=== PATIENT | male | born 1950 | race Caucasian/White ===

== ENCOUNTER 2018-05-03 16:47 | Inpatient (IN) ==
[2018-05-03] MEDS ORDERED: MORPHINE IV ONE (17:18)
[2018-05-03] MEDS ORDERED: TYLENOL PO ONE (17:25)
[2018-05-03] MEDS ORDERED: ROCEPHIN 1 GM in NS 50 ML IV ONE (17:26)
[2018-05-03 18:12] LABS: BASO# 0.02 X1000 (0.0-0.2); BASO% 0.2 % (0.0-0.8); EOS% 0.9 % (0.0-10.0); HEMATOCRIT 35.5 % (42.0-52.0); HEMOGLOBIN 11.2 g/dL (14.0-18.0); IMM GRAN# 0.06 X1000 (0.0-0.04); IMM GRAN% 0.5 % (0.0-0.5); LYMPH# 0.49 X1000 (1.2-3.4); LYMPH% 4.2 % (20.5-51.1); MCH 28.4 PG (27-31); MCHC 31.5 g/dL (33-37); MCV 90.1 FL (81-99); MONO% 5.2 % (1.7-9.3); MPV 10.9 FL (7.4-10.4); NEUT# 10.27 X1000 (1.4-6.5); PLT 222 X1000 (130-400); RBC 3.94 XMIL (4.7-6.1); RDW 12.5 % (11.5-14.5); WBC 11.54 X1000 (4.8-10.8)
[2018-05-03] MEDS ORDERED: ZOFRAN IV ONE (18:21)
[2018-05-03 18:22] LABS: ALB/GLOB RATIO 1.1; ALBUMIN 3.5 g/dL (3.5-5.0); CALCIUM 8.4 mg/dL (8.8-10.2); CREATININE 1.4 mg/dL (0.7-1.2); MAGNESIUM 1.9 mg/dL (1.5-2.7); POTASSIUM 4.1 mmol/L (3.5-5.1); TOTAL BILIRUBIN 0.48 mg/dL (0.20-1.00); TOTAL PROTEIN 6.8 g/dL (6.3-8.3)
--- NOTE | 2018-05-03 18:59 | Diag Imaging Result Doc PS360 ---
EXAM: CT RENAL STONE SEARCH 05/03/2018 HISTORY: SHARP ON/OFF R FLANK PAIN CONCERN STONE TECHNIQUE: This exam was performed using automated exposure control, adjustment of mA or kV according to patient size, and/or use of iterative reconstruction technique. COMMENT: There are multiple cysts arising from the left kidney. There is no evidence of hydronephrosis on either side. There is no evidence of nephrolithiasis. There is extensive colonic diverticulosis without evidence of active diverticulitis. The appendix is normal in appearance. There is atrophy of the left psoas muscle. There are bilateral hip prostheses. Compared to 05/19/2017, there has been no significant change. IMPRESSION: Constipation. Diverticulosis coli. No evidence of obstructive uropathy or urolithiasis. Electronically signed by Erasmo Thomas 05/03/2018 6:57 PM
[2018-05-03 19:03] LABS: URINE SOURCE CLEAN CATCH
[2018-05-03 19:06] LABS: BILIRUBIN URINE NEGATIVE (NEGATIVE); BLOOD URINE MODERATE (NEGATIVE); COLOR YELLOW; GLUCOSE URINE NEGATIVE (NEGATIVE); KETONE URINE NEGATIVE (NEGATIVE); LEUKOCYTES URINE MODERATE (NEGATIVE); NITRITE URINE POSITIVE (NEGATIVE); PH URINE 5.5; PROTEIN URINE 30 mg/dL (NEGATIVE); SP GRAVITY URINE 1.014; TURBIDITY URINE CLEAR (CLEAR); UROBILINOGEN URINE NORMAL (NORMAL)
[2018-05-03 19:07] LABS: UR EPITHELIAL CELLS <10 /HPF (<10); URINE BACTERIA 1+ /HPF; URINE RBC <10 /HPF (<10); URINE WBC TNTC /HPF (<10)
--- NOTE | 2018-05-03 19:37 | PROVIDER DOCUMENTATION ---
This chart was entered by Annette Whyte Scribe, acting as scribe for Jeana Carpio MD. HPI-Male Problem - General Chief Complaint: Abdominal Pain Stated Complaint: ABD PAIN Time Seen by Provider: 05/03/18 17:07 Source: patient Allergies/Adverse Reactions: Patient Allergies Allergy/AdvReac Type Severity Reaction Status Date / Time No Known Allergies Allergy Verified 05/03/18 17:58 Home Medications: Home Medication List Medication Instructions Recorded Confirmed Last Taken Type Atenolol 25 mg PO BID 03/25/12 03/08/18 03/08/18 04:15 History Aspirin 325 mg PO DAILY 11/20/14 03/08/18 03/01/18 History Losartan [Cozaar] 100 mg PO DAILY 11/20/14 03/08/18 03/01/18 History Amlodipine [Norvasc] 5 mg PO DAILY #1 tablet 03/19/16 03/08/18 03/01/18 Rx SIMVAstatin [Zocor] 40 mg PO QHS #0 tablet 03/19/16 03/08/18 03/01/18 Rx Alprazolam [Alprazolam Xr] 1 mg PO PRN PRN 03/02/18 03/08/18 03/06/18 History Pantoprazole [Protonix] 40 mg PO DAILY@0700 03/02/18 03/08/18 03/01/18 History Acetaminophen [Tylenol] 1,000 mg PO Q6H tablet 03/09/18 Unknown Rx Celecoxib [Celebrex] 200 mg PO BID #60 capsule 03/09/18 Unknown Rx Docusate Sodium [Colace] 100 mg PO BID capsule 03/09/18 Unknown Rx Famotidine [Pepcid] 20 mg PO DAILY tablet 03/09/18 Unknown Rx Oxycodone I.r. [Oxy Ir] 5 - 10 mg PO Q3H PRN PRN #40 tablet 03/09/18 Unknown Rx Pregabalin [Lyrica] 75 mg PO BID #60 capsule 03/09/18 Unknown Rx Tramadol [Ultram] 100 mg PO Q6H #120 tablet 03/09/18 Unknown Rx - History of Present Illness-Male Nature of Presenting Problem: 67 y/o male presents to ED with intermittent sharp R flank pain onset 2 weeks ago. Pt also reports associated chills, dysuria, burning with urination, and N/ V. Pt is alert and oriented. Location of Complaint: reports: right flank Radiation: reports: none Quality of Pain: reports: sharp Severity in ED: reports: moderate Onset/Duration: reports: other (2 weeks ago) Timing: reports: still present, intermittent Context/Activities at Onset: reports: none Urinary Symptoms: reports: dysuria, other (burning) Associated Symptoms: reports: back/neck pain (R flank), fever/chills, nausea, vomiting, other (dysuria, burning with urination) Similar Symptoms Previously?: No Recently seen or treated by another doctor?: No Review of Systems - Adult - REVIEW OF SYSTEMS - ADULT Constitutional: reports: chills. denies: fever Eyes: reports: no symptoms reported Ears, Nose, Mouth & Throat: reports: no symptoms reported Cardiovascular: denies: chest pain, palpitations Respiratory: denies: cough, shortness of breath Gastrointestinal: reports: nausea, vomiting. denies: abdominal pain, diarrhea Genitourinary: reports: dysuria, flank pain (R), other (burning) Musculoskeletal: reports: back pain (R flank). denies: joint pain Integumentary: reports: no symptoms reported Neurological: denies: dizziness/vertigo, seizure Psychiatric: reports: no symptoms reported Endocrine: reports: no symptoms reported Hematologic/Lymphatic: reports: no symptoms reported Allergic/Immunologic: reports: no symptoms reported All Other Systems: Reviewed and Negative Past History - Adult - PAST MEDICAL HISTORY-ADULT Review of Records: reports: Old Records Reviewed, Nursing Assessment Review, Medications Reviewed Major Childhood Illnesses: reports: denies history Cardiovascular: reports: CAD, HTN, hyperlipidemia Respiratory: reports: COPD Musculoskeletal: reports: chronic pain (back) Neurological: reports: CVA, TIA Psychiatric: reports: depression - PRIOR SURGERIES/PROCEDURES Surgical/Procedure History: reports: orthopedic (extremity) (arthroscopy), joint replacement (bilateral hips), other (R lower lung removed) - IMMUNIZATION STATUS Childhood Immunizations: See Nurse Assessment Flu Vaccine: See Nurse Assessment - FAMILY HISTORY Family History: reviewed, not pertinent - SOCIAL HISTORY Smoking: greater than 1 pack/day Provider spent 3-5 mins advising pt. on dangers of tobacco.: Discussed manners to quit use, and f/u contacts for add'l counseling. Substance Use: none/never Alcohol Use Frequency: occasionally Living Situation: family Physical Exam-General - PHYSICAL EXAM-ADULT Initial Vital Signs Reviewed: Yes - CONSTITUTIONAL General Appearance: appears well, alert, moderate distress, other (shaking) - EYES Eyes: PERRL/EOMI, pink conjunctivae - HEAD, EARS, NOSE, MOUTH & THROAT HENMT: normocephalic/atraumatic, moist mucous membranes, normal ENT inspection - NECK Neck: non-tender, full range of motion - RESPIRATORY Respiratory: chest non-tender, lungs clear, normal breath sounds - CARDIOVASCULAR Cardiovascular: normal peripheral pulses, regular rate, rhythm - GASTROINTESTINAL (ABDOMEN) Abdominal Exam: normal bowel sounds, soft, tenderness (RLQ) - MUSCULOSKELETAL Back Exam: normal inspection, CVA tenderness (bilateral) Extremity: normal range of motion, non-tender, normal gait - SKIN Integumentary: normal color, warm/dry - NEUROLOGIC Neurologic: grossly normal, other (shaking) - PSYCHIATRIC Psych/Mental Status: normal mood/affect, normal thought content, normal thought process Progress - PLAN OF CARE/RESULTS Progress/Plan/Lab Results: Vital Signs - 8 hr 05/03/18 17:00 Temperature 101.3 F H Pulse Rate 83 Respiratory Rate 24 Blood Pressure 134/92 O2 Sat by Pulse Oximetry 96 Laboratory Results - last 24 hr 05/03/18 05/03/18 05/03/18 17:50 17:50 17:50 WBC 11.54 H RBC 3.94 L Hgb 11.2 L Hct 35.5 L MCV 90.1 MCH 28.4 MCHC 31.5 L RDW Std Deviation 12.5 Plt Count 222 MPV 10.9 H Immature Gran % (Auto) 0.5 Neut % (Auto) 89.0 H Lymph % (Auto) 4.2 L [place] % (Auto) 5.2 Eos % (Auto) 0.9 Baso % (Auto) 0.2 Immature Gran # (Auto) 0.06 H Neut # (Auto) 10.27 H Lymph # (Auto) 0.49 L [place] # (Auto) 0.60 H Eos # (Auto) 0.10 Baso # (Auto) 0.02 Sodium 134 L Potassium 4.1 Chloride 97 L Carbon Dioxide 23 L Anion Gap 14 BUN 23 H Creatinine 1.4 H Estimated GFR/1.73 m2 51 BUN/Creatinine Ratio 16 Glucose 104 Calculated Osmolality 272 Calcium 8.4 L Magnesium 1.9 Total Bilirubin 0.48 AST 13 ALT 10 Alkaline Phosphatase 74 Total Protein 6.8 Albumin 3.5 Globulin 3.3 Albumin/Globulin Ratio 1.1 Plasma Lactate 1.8 Urine Source Urine Color Urine Turbidity Urine pH Ur Specific [place] Urine Protein Ur Glucose (Stick) Ur Ketones (Stick) Urine Blood Urine Nitrite Urine Bilirubin Urobilinogen Dipstick Urine Leukocytes Urine WBC (Auto) Urine RBC (Auto) U Epithel Cells (Auto) Urine Bacteria (Auto) 05/03/18 19:00 WBC RBC Hgb Hct MCV MCH MCHC RDW Std Deviation Plt Count MPV Immature Gran % (Auto) Neut % (Auto) Lymph % (Auto) [place] % (Auto) Eos % (Auto) Baso % (Auto) Immature Gran # (Auto) Neut # (Auto) Lymph # (Auto) [place] # (Auto) Eos # (Auto) Baso # (Auto) Sodium Potassium Chloride Carbon Dioxide Anion Gap BUN Creatinine Estimated GFR/1.73 m2 BUN/Creatinine Ratio Glucose Calculated Osmolality Calcium Magnesium Total Bilirubin AST ALT Alkaline Phosphatase Total Protein Albumin Globulin Albumin/Globulin Ratio Plasma Lactate Urine Source CLEAN CATCH Urine Color YELLOW Urine Turbidity CLEAR Urine pH 5.5 Ur Specific [place] 1.014 Urine Protein 30 A Ur Glucose (Stick) NEGATIVE Ur Ketones (Stick) NEGATIVE Urine Blood MODERATE A Urine Nitrite POSITIVE A Urine Bilirubin NEGATIVE Urobilinogen Dipstick NORMAL Urine Leukocytes MODERATE A Urine WBC (Auto) TNTC A Urine RBC (Auto) <10 U Epithel Cells (Auto) <10 Urine Bacteria (Auto) 1+ Orders Category Date Time Status CT RENAL STONE SEARCH [CT] Stat Exams 05/03/18 17:17 Completed BLOOD CULTURE [BLDCUL] Stat Lab 05/03/18 17:50 Results CBC WITH ELECTRONIC DIFF [HEME] Stat Lab 05/03/18 17:50 Completed COMPREHENSIVE METABOLIC PANEL [CHEM] Stat Lab 05/03/18 17:50 Completed LACTATE, PLASMA [CHEM] Stat Lab 05/03/18 17:50 Completed MAGNESIUM [CHEM] Stat Lab 05/03/18 17:50 Completed URINALYSIS W/POSS RFLX CULT [URINALYSIS] Stat Lab 05/03/18 19:00 Completed URINE CULTURE [RM] Routine Lab 05/03/18 19:25 Received Acetaminophen [Tylenol] Med 05/03/18 17:25 Discontinued 650 mg PO NOW ONE CefTRIAXONE [Rocephin] 1 gm Med 05/03/18 17:26 Discontinued 0.9% Sodium Chloride Inj [Ns] 50 ml IV NOW Morphine Med 05/03/18 17:18 Discontinued 4 mg IV NOW ONE Ondansetron [Zofran] Med 05/03/18 18:21 Discontinued 8 mg IV NOW ONE Result Diagrams: 05/03/18 17:50 05/03/18 17:50 - REASSESSMENT Reassessment #1 Time Reassessed: 19:37 Status: other (SPOKE TO DR. GARRISON WHO WILL ADMIT THE PATIENT; APPREICATE HIS ASSISTANCE.) - CT/MRI 1 CT Study: Abdomen ([facility] [address] , [address], [place] [address] Department of Imaging Patient: SANIA RAMSEY Date: #: [id number] : 1950DM [id number] Age/Sex: 67/MRoom/Bed: Loc: ED Ordering Physician: Jeana Carpio MD Family Physician: Abdiel Garrison MD Reason for Procedure: SHARP ON/OFF R FLANK PAIN CONCERN STONE Signed EXAM: CT RENAL STONE SEARCH 05/03/2018 HISTORY: SHARP ON/OFF R FLANK PAIN CONCERN STONE TECHNIQUE: This exam was performed using automated exposure control, adjustment of mA or kV according to patient size, and/or use of iterative reconstruction technique. COMMENT: There are multiple cysts arising from the left kidney. There is no evidence of hydronephrosis on either side. There is no evidence of nephrolithiasis. There is extensive colonic diverticulosis without evidence of active diverticulitis. The appendix is normal in appearance. There is atrophy of the left psoas muscle. There are bilateral hip prostheses. Compared to 05/19/2017, there has been no significant change. IMPRESSION: Constipation. Diverticulosis coli. No evidence of obstructive uropathy or urolithiasis. Electronically signed by Erasmo Thomas 05/03/2018 6:57 PM 05/03/18 1857 Interpreting Physician: Erasmo Thomas MD Dictated Date/Time: 05/03/18 1849 cc: Jeana Carpio MD; Abdiel Garrison MD) Departure - Departure Date of Disposition Decision: 05/03/18 Time of Disposition Decision: 19:37 DIAGNOSIS: Tobacco abuse disorder, Pyelonephritis, Constipation Disposition: ADMITTED INPATIENT 09 Certified Medical Emergency: Emergent Condition: Fair Referrals and Follow-Ups: Abdiel Garrison MD [Primary Care Provider] - - Critical Care Note This patient required my direct & personal management of CC.: No Attestation - Physician/ ZAY Attestation Patient care was provided by Advanced Practice Provider:: No The physician spent face to face time with patient:: Yes Advanced Practice Provider documentation review:: Supervising physician onsite and consulted in the evaluation and care of this patient. The physician did have a face to face encounter with the patient. This chart was documented by the indicated scribe, (Annette Whyte Scribe) and accurately reflects the services I performed and decisions made by me, Jeana Carpio MD, as attested by the provider's signature.
[2018-05-03] MEDS ORDERED: TYLENOL PO PRN (20:25)
[2018-05-03] MEDS: LOVENOX SUBQ SCH (21:53)
[2018-05-03] MEDS: COLACE PO SCH (21:53)
[2018-05-03] MEDS: ZOSYN 3.375 GM in NS 50 ML IV SCH (21:54)
[2018-05-03] MEDS: TENORMIN PO SCH (21:54)
[2018-05-03] MEDS: MORPHINE IV PRN (21:54)
[2018-05-03] MEDS: XANAX PO PRN (22:10)
[2018-05-04] MEDS: NS 1,000 ML IV SCH ×3 (00:05→22:37)
[2018-05-04] MEDS: ZOCOR PO SCH ×2 (01:36→20:35)
[2018-05-04] MEDS: MORPHINE IV PRN ×5 (01:36→20:34)
[2018-05-04] MEDS: ZOFRAN IV PRN ×5 (01:36→20:34)
[2018-05-04] MEDS: ZOSYN 3.375 GM in NS 50 ML IV SCH ×5 (03:28→21:05)
--- NOTE | 2018-05-04 03:33 | HISTORY AND PHYSICAL ---
PRIMARY CARE PHYSICIAN: Dr. Abdiel Davis. CHIEF COMPLAINT: Intractable right flank and right lower quadrant pain, fevers. HISTORY OF PRESENT ILLNESS: A 67-year-old white male who presents for evaluation of above- mentioned symptoms. Pertinent history of present illness began approximately 2 weeks ago. At that time, the patient states he began to develop intermittent, self-limiting episodes of right flank pain and chills. Over the course of the last 2 weeks, his symptoms have increased. He notes having intermittent dysuria, urinary frequency, urinary hesitancy, and an increasing concentration of urine. The patient's appetite has decreased. The quantity of bowel movements have decreased, but not the quality. He denies hematochezia or melena. On Thursday, he also developed a fever, with intermittent nausea. The patient contacted my office this morning. An appointment was offered, but the patient was unable. By this afternoon, however, the patient began to develop intractable nausea and vomiting. The patient presented to the emergency department. Fever was noted to be 101.3. Full evaluation revealed abnormal urinalysis and elevated white blood cell count. CT scan suggested constipation, diverticulosis, but no evidence of uropathy or ureterolithiasis. The patient will be admitted to the hospital for full evaluation and management of presumed pyelonephritis. Of note, the patient is status post right total knee arthroplasty on 04/05/2018. Additionally, he has had both hips replaced. PAST MEDICAL HISTORY: 1. Abnormal skin examination, with occasional actinic keratosis, and seborrheic keratoses. 2. Anxiety. 3. Carotid atherosclerosis, status post left carotid endarterectomy in 2007, with subsequent occlusion within 2 days of surgery. 4. Hypertension. 5. Hyperlipidemia. 6. Impaired fasting glucose. 7. Status post right lower lobectomy in 2003, with benign pathology. 8. Tobacco use. 9. Obstructive sleep apnea, presumed. 10. Osteoarthritis, status post bilateral hip replacements and right total knee replacement. 11. History of stroke, affecting the left eye, in 2007. 12. Insomnia. CURRENT MEDICATIONS: 1. Alprazolam 1 mg 1/2 to 1 tablet as needed. 2. Amlodipine 5 mg daily. 3. Aspirin 325 mg daily. 4. Atenolol 25 mg twice daily. 5. Dicyclomine 20 mg 3 times daily as needed. 6. Losartan 100 mg daily. 7. Pantoprazole 40 mg daily. 8. Simvastatin 40 mg at bedtime. ALLERGIES: The patient states he is allergic to Cymbalta. SOCIAL HISTORY: The patient began smoking in 1971. He averaged 1 pack per day until approximately 2011. Since that time, he has fluctuated, averaging approximately 1/2 pack per day. His last cigarettes were approximately 2 weeks ago. The patient has approximately 1 drink per week. He denies illicit drug use. 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 He enjoys golf and children. He exercises by walking a mile 3 times per week. FAMILY HISTORY: Patient's father passed at age 90, secondary to failure to thrive after the of his . Patient's mother had a history of hypertension, dementia, and an acute myocardial infarction requiring coronary artery bypass grafting at age 60 and 68. Patient's mother passed at age 89, secondary to complications of a stroke. REVIEW OF SYSTEMS: A 12-point review of systems was performed. Pertinent positives and negatives were noted in the history of present illness. PHYSICAL EXAMINATION: VITAL SIGNS: Temperature 101.3 degrees, heart rate 83, respirations 24, blood pressure 134/92. GENERAL: Well-nourished, well-developed, in no acute distress. HEENT: Normocephalic, atraumatic. Pupils equal, round, reactive to light. Extraocular muscles intact. Sclerae anicteric. [place] conjunctivae. Oral and nasopharynx clear, without exudate. NECK: Supple. No lymphadenopathy. No thyromegaly. No bruits auscultated. CARDIOVASCULAR: Regular rate and rhythm. No significant murmurs, rubs, or gallops. PULMONARY: Clear to auscultation bilaterally. ABDOMEN: Soft. Tenderness in the right lower and right upper quadrants, without guarding or rebound. Positive bowel sounds. EXTREMITIES: Moves all extremities well. No significant clubbing, cyanosis, or edema. NEUROLOGIC: Cranial nerves 2-12 grossly intact. Motor and sensory grossly intact. PSYCHOLOGIC: Examination is appropriate. LABORATORY DATA: White blood cell count 11.54, hemoglobin 11.2, hematocrit 35.5, platelet count 222,000. Sodium 134, potassium 4.1, chloride 97, bicarb 23, BUN 23, creatinine 1.4, glucose 104, calcium 8.4, magnesium 1.9. Total bilirubin 0.48, total protein 6.8, albumin 3.5, alkaline phosphatase 74, AST 13, ALT 10. Urinalysis revealed moderate blood, positive nitrite, with too many to count white blood cells, 1+ bacteria. CT scan suggested constipation. Diverticulosis coli. No evidence of obstructive uropathy or urolithiasis. ASSESSMENT AND PLAN: A 67-year-old white male, with a past medical history as noted. Presents for evaluation of right flank pain, nausea, vomiting, and fever. Laboratory data and physical examination is most consistent with pyelonephritis. Patient will be admitted to the hospital for full evaluation and management of this condition. 1. Admit to General Medicine. 2. Presumed pyelonephritis - In the setting of multiple total joint arthroplasties, right knee in early March, aggressive management is appropriate. We will check blood cultures x2. We will follow urine culture. We will initiate Zosyn therapy. We will hydrate. We will follow this. If blood cultures return positive, further evaluation and management will be appropriate. 3. Intractable nausea and vomiting - We will treat patient's pyelonephritis as described. We will start as-needed Zofran therapy. As above, we will hydrate. 4. Intractable right flank pain - This likely is a consequence of his infection. We will treat as above. We will start patient on as needed morphine. 5. Hypertension - We will continue patient's home medications. 6. Reflux disease - We will continue patient on pantoprazole therapy. 7. Hyperlipidemia - We will continue simvastatin therapy. 8. Anxiety - We will continue as-needed alprazolam. 9. Fluid, electrolytes, nutrition. We will monitor electrolytes. Normal saline at 75 mL an hour. Cardiac prudent diet. 10. Prophylaxis. Patient will be placed on subcu Lovenox. cc: Abdiel Davis MD
[2018-05-04] MEDS: PROTONIX PO SCH ×2 (05:54→06:09)
[2018-05-04 07:26] LABS: BASO# 0.04 X1000 (0.0-0.2); BASO% 0.4 % (0.0-0.8); EOS# 0.25 X1000 (0.0-0.7); EOS% 2.4 % (0.0-10.0); HEMATOCRIT 35.4 % (42.0-52.0); HEMOGLOBIN 10.9 g/dL (14.0-18.0); IMM GRAN# 0.06 X1000 (0.0-0.04); IMM GRAN% 0.6 % (0.0-0.5); LYMPH# 1.55 X1000 (1.2-3.4); LYMPH% 15.2 % (20.5-51.1); MCH 28.4 PG (27-31); MCHC 30.8 g/dL (33-37); MCV 92.2 FL (81-99); MONO# 0.87 X1000 (0.11-0.59); MONO% 8.5 % (1.7-9.3); NEUT# 7.45 X1000 (1.4-6.5); NEUT% 72.9 % (42.2-75.2); PLT 203 X1000 (130-400); RBC 3.84 XMIL (4.7-6.1); RDW 12.7 % (11.5-14.5); WBC 10.22 X1000 (4.8-10.8)
[2018-05-04 07:45] LABS: ALB/GLOB RATIO 0.9; ALBUMIN 3.1 g/dL (3.5-5.0); CALCIUM 8.2 mg/dL (8.8-10.2); CREATININE 1.4 mg/dL (0.7-1.2); POTASSIUM 4.3 mmol/L (3.5-5.1); TOTAL BILIRUBIN 0.39 mg/dL (0.20-1.00); TOTAL PROTEIN 6.5 g/dL (6.3-8.3)
[2018-05-04] MEDS: COLACE PO SCH ×2 (08:48→20:35)
[2018-05-04] MEDS: TENORMIN PO SCH ×2 (08:48→20:36)
[2018-05-04] MEDS: ASPIRIN PO SCH (08:48)
[2018-05-04] MEDS ORDERED: NORVASC PO SCH ×2 (09:00→10:39)
[2018-05-04] MEDS ORDERED: COZAAR PO SCH ×2 (09:00→10:39)
--- NOTE | 2018-05-04 11:56 | PROGRESS NOTE ---
DATE: 05/04/2018 SUBJECTIVE: The patient was admitted yesterday with intractable right flank pain, right lower quadrant pain, and fevers. Urinalysis was noted to be abnormal. CT scan revealed no acute abnormalities. Clinically, patient was diagnosed with pyelonephritis. The patient was placed on IV Zosyn. Over the course of the first 12 hours, patient's overall condition has shown improvement. Patient's temperature has decreased from 101.3 to 97.5. The patient states, overall, he is feeling much improved. He had 1 episode of hypotension this morning after a dose of morphine. Blood pressure was noted to be 77/53. Patient denied significant symptoms at that time. This morning, patient notes pain has improved, but not resolved. She denies nausea and vomiting. OBJECTIVE: Vital signs: T-max 101.3 degrees, heart rate 47 to 85, respirations 18 to 24, blood pressure 77 to 134/ 53 to 92. General: Well nourished, well developed, no acute distress. Cardiovascular: Regular rate and rhythm. No significant murmurs, rubs, or gallops. Pulmonary: Clear to auscultation bilaterally. Abdomen: Soft, tender to the right upper quadrant and right lower quadrant without guarding or rebound. Positive bowel sounds. Extremities: Moves all extremities well. No significant clubbing, cyanosis, or edema. Dermatologic: Evaluation reveals no evidence of rash. LABORATORY DATA: White blood cell count 10.22, hemoglobin 10.9, hematocrit 35.4, platelet counts is 203,000. Sodium 139, potassium 4.3, chloride 103, bicarb 29, BUN 24, creatinine 1.4, glucose 8.2. ASSESSMENT AND PLAN: 1. Presumed pyelonephritis - As above, patient is being treated aggressively with Zosyn therapy. Thus far, clinically, he has demonstrated improvement. We will continue to follow patient's blood cultures and urine cultures. For now, we will continue his current antibiotic regimen. 2. Intractable nausea and vomiting - This is likely with a consequence of his acute illness. With treatment of his pyelonephritis, he has achieved improvement. We will continue as-needed Zofran. 3. Intractable right flank pain and right upper quadrant pain - Patient is achieving improvement with treatment of his underlying pyelonephritis. 4. Isolated episode of hypotension - This likely was a consequence of morphine intervention. We will remain aware of this, certainly could be secondary to his underlying infection. As he is clinically improving, we will avoid any further intervention for now. We will continue to hold his blood pressure medications. 5. Reflux disease - We will continue pantoprazole therapy. 6. Hyperlipidemia - We will continue simvastatin therapy. 7. Anxiety - We will continue as-needed alprazolam. 8. Disposition - St this point, patient continues to require alf care in a hospital setting. We will plan discharge home once appropriate. cc: Abdiel Davis MD
[2018-05-04] MEDS: XANAX PO PRN (20:34)
[2018-05-04] MEDS: LOVENOX SUBQ SCH (20:35)
[2018-05-05] MEDS: ZOSYN 3.375 GM in NS 50 ML IV SCH (04:00)
[2018-05-05] MEDS: MORPHINE IV PRN (05:11)
[2018-05-05] MEDS: PROTONIX PO SCH (06:25)
[2018-05-05] MEDS: NS 1,000 ML IV SCH (06:26)
[2018-05-05 07:53] VITALS: BP 125/68
[2018-05-05] MEDS: ASPIRIN PO SCH (09:48)
[2018-05-05] MEDS: TENORMIN PO SCH (09:49)
[2018-05-05] MEDS: COLACE PO SCH (09:49)
--- NOTE | 2018-05-06 04:28 | DISCHARGE SUMMARY ---
ADMISSION DATE: 05/03/2018 DISCHARGE DATE: 05/05/2018 ADMISSION DIAGNOSES: 1. Intractable flank and right lower quadrant pain. 2. Fevers. DISCHARGE DIAGNOSES: 1. Presumed pyelonephritis. 2. Intractable nausea and vomiting, improved. 3. Intractable right flank pain and right upper quadrant pain, improved. 4. Isolated episode of hypotension, resolved. 5. Reflux disease, present on arrival. 6. Hyperlipidemia, present on arrival. 7. Anxiety, present on arrival. ARRIVAL CONSULTATIONS:: None. PROCEDURES: A CT scan renal stone search was performed on 05/03/2018 which revealed constipation. Diverticulosis coli. No evidence of obstructive uropathy or urolithiasis. HISTORY AND PHYSICAL EXAMINATION: See admit note. PHYSICAL EXAMINATION PRIOR TO DISCHARGE: Vital Signs: Temperature 97.9 degrees, heart rate 50, respirations 16, blood pressure is 125/68. General: Well nourished, well developed, no acute distress. Cardiovascular: Regular rate and rhythm. No significant murmurs, rubs, or gallops. Pulmonary: Clear to auscultation bilaterally. Abdomen: Soft, slightly tender in the right upper quadrant and right lower quadrant without guarding or rebound. Positive bowel sounds. Extremities: Moves all extremities well. No significant clubbing, cyanosis, or edema. Dermatologic: Evaluation reveals no evidence of rash. LABORATORY DATA PRIOR TO DISCHARGE: None. CULTURE DATA PRIOR TO DISCHARGE: Urine culture has revealed 10-20,000 colony-forming units of a gram-negative jing. HOSPITAL COURSE: The patient was admitted as per history and physical examination. Hospital course per condition is as follows: 1. Presumed pyelonephritis - upon admission, the patient was noted to have intractable nausea, vomiting, right upper and lower quadrant pain, flank pain, and an abnormal urinalysis. Symptoms were most consistent with underlying pyelonephritis. Because the patient has multiple total joint arthroplasties, aggressive IV intervention was deemed most appropriate. Blood cultures and urine cultures were drawn. The patient was placed on Zosyn therapy. With therapy, the patient's fever rapidly improved. His nausea and vomiting resolved. At time of discharge, the patient states he was feeling well. He will be discharged home on Augmentin therapy to complete a total of 2 weeks of antibiotic intervention. We will follow up on the patient's urine culture to determine if alternative agents are more appropriate. We will also follow the patient's blood cultures to confirm that he does not demonstrate underlying bacteremia. 2. Intractable nausea and vomiting - this likely was a consequence of his pyelonephritis. His pyelonephritis was treated as described above. He was treated with as-needed Zofran while hospitalized with adequate response. At time of discharge, he was tolerating p.o. 3. Intractable right flank pain - this likely was a consequence of pyelonephritis. He was treated with IV morphine while hospitalized. He has been for provided a limited supply of [place] at discharge. I suspect that with further treatment of his pyelonephritis, this will resolve. 4. Hypertension with an isolated episode of hypotension while hospitalized. The patient has underlying hypertension. Upon admission, the patient's antihypertensive agents were held. He had one episode of hypotension, likely secondary to morphine use. The patient will resume his home regimen as his blood pressure is maintained above 130 systolic. We will follow this as well. 5. Reflux disease - the patient was continued on pantoprazole therapy while hospitalized. His symptoms were controlled. 6. Hyperlipidemia - the patient was continued on simvastatin therapy. This will be continued as an outpatient. 7. Anxiety - we will continue the patient on as-needed alprazolam. 8. Leukocytosis - the patient achieved resolution while hospitalized with antibiotic intervention. DISCHARGE CONDITION: Good. DISPOSITION: Discharged to home. DISCHARGE MEDICATIONS: 1. Acetaminophen 650 mg every 4 hours as needed. 2. Xanax 0.5 mg every 6 hours as needed. 3. Colace 100 mg twice daily. 4. [place] 7.5/325, #10, 1/2-1 tablet every 6 hours as needed for pain. 5. Cozaar 100 mg daily. 6. Augmentin 875/125 every 12 hours for an additional 12 days. 7. Atenolol 25 mg twice daily. 8. Aspirin 325 mg daily. 9. Simvastatin 40 mg at bedtime. 10. Pantoprazole 40 mg daily at 7 a.m. 11. Norvasc 5 mg daily. FOLLOWUP: The patient is to follow up with me in approximately 1-2 weeks. cc: Abdiel Davis MD
== END 2018-05-05 11:33 | disposition home or self-care (01) | DRG 690 ==
LOC: ED 16:47 → EDIPHOLD 21:52 → 3N 05-04 00:40
PROVIDERS: ADMIT Internal Medicine; ATTEND Internal Medicine
CPT/HCPCS: 74176; 80053; 81001; 83605; 83735; 85025; 87040; 87077; 87088; 87186; 94761; 94799; 96365; 96367; 96375; 99285; A9270; J0696; J1650; J2270; J2405; J2543; J7030

== ENCOUNTER 2018-07-09 13:40 | Inpatient (IN) ==
[2018-07-09] MEDS: ATROVENT NEB INH SCH ×3 (16:09→23:55)
[2018-07-09] MEDS: NS 1,000 ML IV SCH (16:25)
[2018-07-09] MEDS: DOXYCYCLINE 100 MG in NS 250 ML IV SCH (16:25)
[2018-07-09] MEDS: ROCEPHIN 1 GM in NS 50 ML IV SCH (16:31)
[2018-07-09] MEDS: MORPHINE IV PRN ×2 (16:32→21:00)
--- NOTE | 2018-07-09 16:40 | Diag Imaging Result Doc PS360 ---
EXAM: CHEST-2 VIEWS 07/09/2018 HISTORY: Shortness of breath TECHNIQUE: PA and lateral chest COMMENT: There is ill-defined opacity present in the posterior right lower lobe. This is more prominent than on the previous studies of 11/17/2014 and 03/17/2016. There was and is some pleural fibrosis present laterally. There are surgical clips and suture lines in the area of the right hilum. IMPRESSION: Atelectasis versus pneumonia in the right lower lobe. Advise follow-up. Electronically signed by Erasmo Thomas 07/09/2018 4:38 PM
[2018-07-09 16:53] LABS: URINE SOURCE CLEAN CATCH
[2018-07-09 17:00] LABS: BILIRUBIN URINE SMALL (NEGATIVE); BLOOD URINE MODERATE (NEGATIVE); COLOR YELLOW; GLUCOSE URINE NEGATIVE (NEGATIVE); KETONE URINE NEGATIVE (NEGATIVE); LEUKOCYTES URINE TRACE (NEGATIVE); NITRITE URINE NEGATIVE (NEGATIVE); PROTEIN URINE 100 mg/dL (NEGATIVE); SP GRAVITY URINE 1.032; TURBIDITY URINE CLEAR (CLEAR); UROBILINOGEN URINE 3 mg/dL (NORMAL)
[2018-07-09 17:08] LABS: UR EPITHELIAL CELLS <10 /HPF (<10); URINE BACTERIA NEGATIVE /HPF; URINE RBC <10 /HPF (<10)
[2018-07-09 17:30] LABS: BASO# 0.02 X1000 (0.0-0.2); BASO% 0.2 % (0.0-0.8); EOS# 0.14 X1000 (0.0-0.7); EOS% 1.5 % (0.0-10.0); HEMATOCRIT 40.3 % (42.0-52.0); HEMOGLOBIN 12.7 g/dL (14.0-18.0); IMM GRAN# 0.06 X1000 (0.0-0.04); IMM GRAN% 0.6 % (0.0-0.5); LYMPH# 1.38 X1000 (1.2-3.4); LYMPH% 14.4 % (20.5-51.1); MCH 28.2 PG (27-31); MCHC 31.5 g/dL (33-37); MCV 89.6 FL (81-99); MONO# 0.99 X1000 (0.11-0.59); MONO% 10.3 % (1.7-9.3); MPV 10.7 FL (7.4-10.4); NEUT# 6.99 X1000 (1.4-6.5); PLT 194 X1000 (130-400); RDW 14.4 % (11.5-14.5); WBC 9.58 X1000 (4.8-10.8)
[2018-07-09 17:32] LABS: URINE CASTS GRANULAR PRESENT; URINE CRYSTALS NONE SEEN; URINE SMALL ROUND CELLS NONE SEEN; URINE YEAST NONE SEEN
[2018-07-09 18:11] LABS: ALBUMIN 3.7 g/dL (3.5-5.0); CALCIUM 9.2 mg/dL (8.8-10.2); CREATININE 1.2 mg/dL (0.7-1.2); POTASSIUM 4.5 mmol/L (3.5-5.1); TOTAL BILIRUBIN 0.72 mg/dL (0.20-1.00); TOTAL PROTEIN 7.5 g/dL (6.3-8.3)
[2018-07-09] MEDS ORDERED: PROTONIX PO PRN (21:09)
--- NOTE | 2018-07-09 21:31 | HISTORY AND PHYSICAL ---
PRIMARY CARE PHYSICIAN: Dr. Abdiel Davis. CHIEF COMPLAINT: Shortness of breath, cough, congestion, urinary frequency. HISTORY AND PHYSICAL EXAMINATION: A 68-year-old white male with a complicated past medical history presents for evaluation of above-mentioned symptoms. Current history of present illness began on June 22. At that time, patient presented to my office with upper respiratory symptoms and associated bronchospasm. The patient was treated aggressively with a steroid taper, bronchodilators, and levofloxacin therapy. The patient states initially he did reasonably well. After completing antibiotic intervention, patient developed right posterior thoracic spine pain. Over the course of the following 2 weeks, symptoms slowly progressed. On Thursday, patient noted his overall condition to deteriorate considerably. He noted profound fatigue. On Thursday, he continued to feel poorly but without specific increase in symptoms with exception of his right posterior thoracic spine pain. On Thursday, he noted significant progression of his thoracic spine pain with radiation to the posterior cervical spine and periscapular region. That night, he went to bed early after having an episode of hemoptysis. On Thursday, his shortness of breath and congestion progressed. He spiked a temperature to 100.1. Yesterday, his fever increased to 101. Because of his progressive symptoms with associated weakness and shortness of breath, patient presented to my office for further evaluation and management. Upon arrival, patient was noted to be acutely ill. The patient was then sent directly to the hospital for admission for presumed right lower lobe lung field pneumonia. X-ray has demonstrated confirmation. Of note, patient also has noted some increase in urinary frequency and intermittent dysuria. He denies hematuria or pyuria. PAST MEDICAL HISTORY: 1. Abnormal skin examination with multiple actinic keratoses and seborrheic keratoses. 2. Anxiety. 3. Hypertension. 4. Hyperlipidemia. 5. Impaired fasting glucose. 6. 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 7. Longstanding history of tobacco use 8. Obstructive sleep apnea. 9. Obesity. 10. Osteoarthritis. 11. History of ischemic stroke secondary to left carotid stenosis. 12. Insomnia. CURRENT MEDICATIONS: 1. Amlodipine 5 mg daily. 2. Aspirin 325 mg daily. 3. Atenolol 25 mg twice daily. 4. Losartan 100 mg daily. 5. Simvastatin 40 mg at bedtime. ALLERGIES: Patient did not tolerate Cymbalta. SOCIAL HISTORY: Patient has a longstanding history of tobacco use. He has approximately 1 to 2 drinks of alcohol per week. Denies illicit drug use. 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 He enjoys golf and his children. He exercises intermittently. REVIEW OF SYSTEMS: A 12 point review of systems was performed. Pertinent positives and negatives are noted in history of present illness. PHYSICAL EXAMINATION: VITAL SIGNS: Temperature 99.2 degrees, heart rate 80, respirations 16, blood pressure is 124/73. GENERAL: Ill-appearing. No acute distress. HEENT: Normocephalic, atraumatic. Pupils equal, round, react to light. Extraocular muscles intact. Sclerae anicteric. [place] conjunctivae. Oral and nasopharynx clear without exudate. NECK: Supple. No lymphadenopathy. No thyromegaly. No bruits auscultated. CARDIOVASCULAR: Regular rate and rhythm. No significant murmurs, rubs, or gallops. PULMONARY: Crackles at the right base. Adequate air movement. ABDOMEN: Soft, nontender, nondistended. Positive bowel sounds. EXTREMITIES: Moves all extremities well. No significant clubbing, cyanosis, or edema. NEUROLOGIC: Cranial nerves 2-12 grossly intact. Motor and sensory grossly intact. PSYCHOLOGIC: Appropriate. LABORATORY DATA: White blood cell count 9.58, hemoglobin 12.7, hematocrit 40.3, platelet count 194,000. Sodium 139, potassium 4.5, chloride 101, bicarb 26, BUN 23, creatinine 1.2, glucose 83, calcium 9.2, total bilirubin 0.72, total protein 7.5, albumin 3.7, alkaline phosphatase 85, AST 15, ALT 11. Urinalysis revealed moderate blood, small bilirubin, 10 to 20 white blood cells. No bacteria seen. ASSESSMENT AND PLAN: A 68-year-old white male with a complicated past medical history presents for evaluation of profound fatigue, shortness of breath, cough, congestion, and urinary frequency. Laboratory data is significant for an abnormal urinalysis with hematuria. Chest x-ray suggested underlying pneumonia in the right lower lobe. The patient will be admitted to the hospital for full evaluation and management of right lower lung field pneumonia. 1. Admit to General Medicine. 2. Right lower lung field pneumonia with associated hemoptysis-chest x-ray is consistent with an underlying pneumonia. With his prolonged tobacco history as well as hemoptysis, I do feel further investigation will be warranted. For now, we will start patient on Rocephin and [*]. We will continue routine bronchodilators. We will schedule a CT scan of the chest in the a.m. 3. Hematuria-patient has moderate hematuria per examination. White blood cells are present in urinalysis, but no evidence of bacteria. We will send the patient's urine for culture. If this returns negative, patient likely will require cystoscopic evaluation. 4. Urinary frequency-while this may be secondary to urinary tract infection, I am concerned this may also be prostatic in etiology. We will start patient on Flomax therapy. 5. Profound weakness-this is likely a consequence of his pneumonia. We will treat as above. If patient does not demonstrate a rapid improvement, we will consider adding physical therapy. 6. Right thoracic and flank pain-I suspect this is secondary to a pleuritic etiology. We will check with CAT scan as above. We will continue symptomatic management. 7. Hyperlipidemia-we will continue simvastatin therapy. 8. Hypertension-we will continue patient's home regimen. 9. Fluid, electrolytes, nutrition. We will monitor electrolytes. Normal saline at KVO. Regular diet. 10. Prophylaxis. Patient will be placed on subcu Lovenox. cc: Abdiel Davis MD
[2018-07-09] MEDS: ZOCOR PO SCH (22:32)
[2018-07-09] MEDS: XANAX PO SCH (22:32)
[2018-07-09] MEDS: TENORMIN PO SCH (22:33)
[2018-07-10] MEDS: MORPHINE IV PRN ×5 (03:40→21:36)
[2018-07-10] MEDS: DOXYCYCLINE 100 MG in NS 250 ML IV SCH ×2 (03:40→16:20)
[2018-07-10] MEDS: ATROVENT NEB INH SCH ×6 (05:01→23:38)
[2018-07-10] MEDS ORDERED: NORVASC PO SCH (09:00)
[2018-07-10] MEDS: ASPIRIN PO SCH (09:12)
[2018-07-10] MEDS: COZAAR PO SCH (09:12)
[2018-07-10] MEDS: TENORMIN PO SCH ×2 (09:12→21:36)
--- NOTE | 2018-07-10 10:58 | Diag Imaging Result Doc PS360 ---
EXAM: CT THORAX W/CONTRAST - 07/10/2018 HISTORY: pneumonia TECHNIQUE: CT thorax with intravenous contrast COMPARISON: 03/17/2016 CT angiogram pulmonary arteries FINDINGS: There is postsurgical scarring on the right similar to prior. There is new consolidation at the posterior right lower lung (presumably the right lower lobe isn't is not been surgically removed) which is compatible with pneumonia. The remainder of the lungs appear essentially clear. There is no substantial pleural effusion or pneumothorax identified. There are mildly prominent mediastinal lymph nodes similar to prior. IMPRESSION: Right lower lobe pneumonia. Mildly prominent mediastinal lymph nodes similar to prior. This exam was performed using automated exposure control, adjustment of mA or kV according to patient size, and/or use of iterative reconstruction technique. Electronically signed by Dmitry Johnson 07/10/2018 10:56 AM
[2018-07-10] MEDS: MUCINEX DM PO SCH ×2 (13:01→21:36)
--- NOTE | 2018-07-10 14:03 | PROGRESS NOTE ---
DATE: 07/10/2018 SUBJECTIVE: The patient was admitted yesterday with a presumed pneumonia and hemoptysis. Chest x- ray confirmed this diagnosis. The patient was started on Rocephin and doxycycline therapy. Bronchodilators were scheduled. Over the course of the first 24 hours, the patient states he has done reasonably well. He continues to have a persistent cough, as well as pleuritic chest pain. He denies any hemoptysis. CT scan of the chest was performed this morning to rule out further underlying pathology. This confirmed a right lower lung field pneumonia. The patient currently denies fevers, chills, nausea, vomiting, or cardiac chest discomfort. Flomax was initiated yesterday for urinary frequency, with some improvement in symptoms. OBJECTIVE: Vitals: T-max 100.2 degrees, heart rate 98 to 54, respirations 16 to 20, blood pressure 89 to 124/50 to 68. General: Well nourished, well developed, in no acute distress. Cardiovascular: Regular rate and rhythm. No significant murmurs, rubs, or gallops. Pulmonary: Crackles at the right base. Adequate air movement. Occasional wheeze. Abdomen: Soft, nontender, nondistended. Positive bowel sounds. Extremities: Moves all extremities well. No significant clubbing, cyanosis, or edema. Dermatologic: Evaluation reveals no evidence of rash. LABORATORY DATA: None. ASSESSMENT AND PLAN: 1. Right lower lung field pneumonia with associated hemoptysis. As described, chest x-ray and CT scan both confirmed an underlying pneumonia. We will continue patient on Rocephin and doxycycline therapy as described above. We will continue bronchodilators. Symptomatically, the patient is achieving some improvement. 2. Hematuria, was noted per urinalysis. We will follow urine culture. If culture returns negative, we will plan cystoscopic evaluation as an outpatient. 3. Urinary frequency. Symptoms are slowly improving. We will continue patient on Flomax therapy. We will follow cultures as described above to rule out underlying urinary tract infection. 4. Profound weakness. The patient has achieved some improvement over the first 24 hours. We will encourage the patient to ambulate in his room. We will follow this as well. 5. Right thoracic and flank pain. This likely is pleuritic secondary to underlying pneumonia. We will continue symptomatic management. 6. Hyperlipidemia. We will continue the patient on simvastatin therapy. 7. Hypertension. In the setting of slight hypotension, we will hold amlodipine for systolic blood pressure less than 130. 8. Disposition. At this point, the patient continues to require residential care in a hospital setting. We will plan discharge home once appropriate. cc: Abdiel Davis MD
[2018-07-10] MEDS ORDERED: XANAX PO SCH (21:00)
[2018-07-10] MEDS: ZOCOR PO SCH (21:36)
[2018-07-10] MEDS: XANAX PO SCH (21:36)
[2018-07-10] MEDS: ROCEPHIN 1 GM in NS 50 ML IV SCH (21:36)
[2018-07-10] MEDS: NS 1,000 ML IV SCH (21:42)
[2018-07-11] MEDS: ATROVENT NEB INH SCH ×5 (03:48→19:30)
[2018-07-11] MEDS: MORPHINE IV PRN ×4 (04:22→20:09)
[2018-07-11] MEDS: DOXYCYCLINE 100 MG in NS 250 ML IV SCH ×2 (04:22→16:38)
[2018-07-11 06:43] LABS: BASO# 0.03 X1000 (0.0-0.2); BASO% 0.4 % (0.0-0.8); EOS# 0.35 X1000 (0.0-0.7); HEMATOCRIT 37.5 % (42.0-52.0); HEMOGLOBIN 11.8 g/dL (14.0-18.0); IMM GRAN# 0.07 X1000 (0.0-0.04); LYMPH# 1.21 X1000 (1.2-3.4); LYMPH% 17.3 % (20.5-51.1); MCH 28.5 PG (27-31); MCHC 31.5 g/dL (33-37); MCV 90.6 FL (81-99); MONO# 0.82 X1000 (0.11-0.59); MONO% 11.7 % (1.7-9.3); MPV 10.9 FL (7.4-10.4); NEUT# 4.53 X1000 (1.4-6.5); NEUT% 64.6 % (42.2-75.2); PLT 180 X1000 (130-400); RBC 4.14 XMIL (4.7-6.1); RDW 14.1 % (11.5-14.5); WBC 7.01 X1000 (4.8-10.8)
[2018-07-11 06:59] LABS: ALB/GLOB RATIO 0.9; ALBUMIN 3.3 g/dL (3.5-5.0); CALCIUM 8.6 mg/dL (8.8-10.2); CREATININE 1.2 mg/dL (0.7-1.2); POTASSIUM 4.7 mmol/L (3.5-5.1); TOTAL BILIRUBIN 0.31 mg/dL (0.20-1.00); TOTAL PROTEIN 6.8 g/dL (6.3-8.3)
[2018-07-11] MEDS: ASPIRIN PO SCH (11:27)
[2018-07-11] MEDS: MUCINEX DM PO SCH ×2 (11:27→20:09)
[2018-07-11] MEDS: COZAAR PO SCH (11:27)
[2018-07-11] MEDS: TENORMIN PO SCH ×2 (11:27→20:10)
[2018-07-11] MEDS: LOVENOX SUBQ SCH (11:28)
--- NOTE | 2018-07-11 13:27 | PROGRESS NOTE ---
DATE: 07/11/2018 SUBJECTIVE: The patient states over the course of the last 24 hours he has not done well. Beginning yesterday evening, patient developed pain in his left wrist. Since that time, patient has had infiltration of his IV. He noted considerable swelling and pain. From a pulmonary standpoint, patient states he continues to have cough as well as pleuritic chest pain in the right lower lung field. He denies fevers, chills, nausea, vomiting, shortness of breath, or chest discomfort at present time. OBJECTIVE: T-max 98.7 degrees, heart rate 54 to 75, respirations 16 to 18, blood pressure 105 to 115 over 58 to 69.General: Well nourished, well developed, no acute distress. Cardiovascular: Regular rate and rhythm. No significant murmurs, rubs, or gallops. Pulmonary: Clear auscultation bilaterally. Abdomen: Soft, nontender, nondistended. Positive bowel sounds. Extremities: Moves all extremities well. No significant clubbing, cyanosis, or edema. Dermatologic: Evaluation reveals no evidence of rash. LABORATORY DATA: White blood cell count 7.01, hemoglobin 11.8, hematocrit 37.5, platelet count 180,000. Sodium 142, potassium 4.7, chloride 106, bicarb 28, BUN 19, creatinine 1.2, glucose 96, calcium 8.6, total bilirubin 0.31, total protein 6.8, albumin 3.3, alkaline phosphatase 85, AST 18, ALT 18. ASSESSMENT AND PLAN: 1. Right lower lung field pneumonia with associated hemoptysis-as described in his history and physical examination, patient failed outpatient intervention. He is currently being treated with Rocephin and doxycycline therapy. Overall, his condition continues to improve. I anticipate within the next 24 to 48 hours, we will be able to transition him home with oral antibiotic intervention. Followup CT scan will be warranted. We will also continue bronchodilators. 2. Hematuria-urinalysis revealed significant hematuria. Urine culture thus far has returned negative. We will plan cystoscopic evaluation as an outpatient. 3. Dysphagia-patient complains of intermittent dysphagia while hospitalized and as an outpatient. In the setting of pneumonia, I am hesitant to pursue GI evaluation. We will plan this as an outpatient. As he has been treated with steroids and antibiotics in the recent past, Kae esophagitis will need to be considered. 4. Urinary frequency-the patient's symptoms are reasonably controlled with Flomax therapy. 5. Profound weakness-the patient has been walking in his room. We will encourage increased activity. 6. Right thoracic and flank pain-this likely is secondary to underlying pneumonia and pleuritic etiology. We will continue symptomatic management. 7. Hyperlipidemia-we will continue patient on simvastatin therapy. 8. Hypertension-blood pressure is controlled. We held patient's amlodipine for systolic blood pressure less than 130. 9. Disposition-at this point, patient continues to require [facility] care in a hospital setting. We will plan discharge home once appropriate. cc: Abdiel Davis MD
[2018-07-11] MEDS: ROCEPHIN 1 GM in NS 50 ML IV SCH (20:09)
[2018-07-11] MEDS: ZOCOR PO SCH (20:10)
[2018-07-11] MEDS: XANAX PO SCH (20:10)
[2018-07-12] MEDS: MORPHINE IV PRN ×6 (00:35→22:28)
[2018-07-12] MEDS: ATROVENT NEB INH SCH ×5 (03:23→19:40)
[2018-07-12] MEDS: DOXYCYCLINE 100 MG in NS 250 ML IV SCH ×2 (04:39→15:52)
[2018-07-12] MEDS: TENORMIN PO SCH ×2 (09:42→22:31)
[2018-07-12] MEDS: ASPIRIN PO SCH (09:42)
[2018-07-12] MEDS: COZAAR PO SCH (09:42)
[2018-07-12] MEDS: LOVENOX SUBQ SCH (09:42)
[2018-07-12] MEDS: MUCINEX DM PO SCH ×2 (09:42→22:28)
[2018-07-12] MEDS: NS 1,000 ML IV SCH (11:19)
--- NOTE | 2018-07-12 21:20 | PROGRESS NOTE ---
DATE: 07/12/2018 SUBJECTIVE: The patient was originally seen this morning. At that time, patient states he had a difficult night. He noted a continuous cough, congestion, and right flank pain. Throughout the day today, patient's overall condition improved slowly. The evening, patient notes decreasing pain, down from 10/10 to 8/10. His cough remains productive. He denies fevers, chills, nausea, vomiting or shortness of breath. Of note, a close family member was diagnosed with influenza A today. OBJECTIVE: Vital Signs: T-max is 99.0, heart rate 51-60, respirations 15-18, blood pressure 108- 120/62-66. General: Well nourished, well developed, in no acute distress. Cardiovascular: Regular rate and rhythm. No significant murmurs, rubs or gallops. Pulmonary: Clear to auscultation bilaterally. Abdomen: Soft, nontender, nondistended. Positive bowel sounds. Extremities: Moves all extremities well. No significant clubbing, cyanosis or edema. Dermatologic: Evaluation reveals no evidence of rash. LABORATORY DATA: None. ASSESSMENT AND PLAN: 1. Right lower lung field pneumonia with associated hemoptysis - As above, patient continues to have pleuritic chest pain, improved from 10/10 to 8/10. He continues to have considerable cough productive of a purulent sputum. For now, we will continue Rocephin and doxycycline therapy. Influenza screen today returned negative. 2. Hematuria - This is significant per urinalysis. We will plan outpatient evaluation once his pulmonary condition has improved. 3. Dysphagia - The patient has achieved improvement while hospitalized. We will remain aware. 4. Urinary frequency - The patient notes control of his symptoms at present time. 5. Profound weakness - The patient has been walking within his room. His energy level is slowly improving. 6. Right thoracic and flank pain - This likely is secondary to pleuritic involvement of his pneumonia. We will continue supportive care. Symptoms are slowly improving. 7. Hyperlipidemia - We will continue simvastatin therapy. 8. Hypertension - Blood pressure is reasonably controlled with his current regimen. 9. Disposition - At this point, patient continues to require long-term care in a hospital setting. I anticipate discharge home in the near future. cc: Abdiel Davis MD
[2018-07-12] MEDS: ZOCOR PO SCH (22:28)
[2018-07-12] MEDS: ROCEPHIN 1 GM in NS 50 ML IV SCH (22:28)
[2018-07-12] MEDS: XANAX PO SCH (22:28)
[2018-07-13] MEDS: MORPHINE IV PRN ×6 (02:42→23:55)
[2018-07-13] MEDS: ATROVENT NEB INH SCH ×6 (03:18→23:59)
[2018-07-13] MEDS: DOXYCYCLINE 100 MG in NS 250 ML IV SCH ×2 (04:08→15:47)
[2018-07-13] MEDS: TYLENOL PO PRN ×2 (05:19→21:48)
[2018-07-13] MEDS: LOVENOX SUBQ SCH (08:54)
[2018-07-13] MEDS: MUCINEX DM PO SCH ×2 (08:54→21:47)
[2018-07-13] MEDS: ASPIRIN PO SCH (08:55)
[2018-07-13] MEDS: COZAAR PO SCH (08:55)
[2018-07-13] MEDS: TENORMIN PO SCH ×2 (08:56→21:48)
--- NOTE | 2018-07-13 15:49 | PROGRESS NOTE ---
DATE: 07/13/2018 SUBJECTIVE: The patient notes overnight having increasing wheezing. He is, however, noted to have decreasing pain in his right flank. Cough remains productive of a purulent sputum. He denies fevers, chills, nausea, vomiting, shortness of breath, or chest discomfort. OBJECTIVE: Vital Signs: T-max 98.3, heart rate 55-95, respirations 15-18, blood pressure 99 to 120/ 52 to 65. General: Well nourished, well developed, no acute distress. Cardiovascular: Regular rate and rhythm. No significant murmurs, rubs, or gallops. Pulmonary: Clear to auscultation bilaterally. Abdomen: Soft, nontender, nondistended. Positive bowel sounds. Extremities: Moves all extremities well. No significant clubbing, cyanosis, or edema. Dermatologic: Evaluation reveals no evidence of rash. LABORATORY DATA: None. ASSESSMENT AND PLAN: 1. Right lower lobe field pneumonia with associated hemoptysis--overall, patient's condition continues to improve with Rocephin, doxycycline, and bronchodilators. Patient is approaching a time for discharge. Unfortunately, his was diagnosed with influenza A yesterday. He is unable to go home secondary to this. He is to discuss this with his sons who live out of town. I anticipate discharge home with sons within the next 24-48 hours. 2. Hematuria--patient was diagnosed per urinalysis. We will plan outpatient evaluation. 3. Dysphagia--patient's symptoms have improved while hospitalized. We will remain aware. 4. Urinary frequency--the patient has achieved improvement in his overall condition. 5. Profound weakness--the patient continues to increase his activity. Energy level is slowly improving. 6. Right flank and thoracic spine pain--this likely is pleuritic in the etiology. Symptoms are slowly improving with treatment of his pneumonia. 7. Hyperlipidemia--we will continue simvastatin therapy. 8. Hypertension-blood pressure is reasonably controlled on his current regimen. We will continue this. 9. Disposition--at this point, patient continues to require half-way care in a hospital setting. We will plan discharge home once appropriate. cc: Abdiel Davis MD
[2018-07-13] MEDS: XANAX PO SCH (21:47)
[2018-07-13] MEDS: ROCEPHIN 1 GM in NS 50 ML IV SCH (21:47)
[2018-07-13] MEDS: ZOCOR PO SCH (21:48)
[2018-07-14] MEDS: MORPHINE IV PRN (04:06)
[2018-07-14] MEDS: DOXYCYCLINE 100 MG in NS 250 ML IV SCH (04:06)
[2018-07-14] MEDS: ATROVENT NEB INH SCH ×3 (06:18→11:28)
[2018-07-14] MEDS ORDERED: ULTRAM PO PRN (08:02)
[2018-07-14] MEDS: COZAAR PO SCH (10:22)
[2018-07-14] MEDS: ASPIRIN PO SCH (10:22)
[2018-07-14] MEDS: MUCINEX DM PO SCH (10:23)
[2018-07-14] MEDS: LOVENOX SUBQ SCH (10:23)
[2018-07-14] MEDS: TENORMIN PO SCH (10:29)
[2018-07-14 11:39] VITALS: BP 125/83
--- NOTE | 2018-07-14 14:48 | DISCHARGE SUMMARY ---
ADMISSION DATE: 07/09/2018 DISCHARGE DATE: 07/14/2018 ADMISSION DIAGNOSES: 1. Shortness of breath. 2. Cough. 3. Congestion. 4. Urinary frequency. DISCHARGE DIAGNOSES: 1. Right lower lobe lung field pneumonia with associated hemoptysis, improving. 2. Intractable right flank and thoracic spine pain, likely pleuritic. 3. Hematuria, present on arrival. 4. Dysphagia, improved. 5. Urinary frequency, improved. 6. Profound weakness, improving. 7. Hyperlipidemia, present on arrival. 8. Hypertension, present on arrival. CONSULTATIONS: None. PROCEDURES: 1. A chest x-ray was performed on 07/09/2018 which revealed atelectasis versus pneumonia of the right lower lobe. 2. CT scan of the chest was performed on 07/10/2018 which revealed right lower lobe pneumonia. HISTORY AND PHYSICAL EXAMINATION: See admit note. Physical examination prior to discharge, temperature 97.3 degrees, heart rate 58, respirations 20 and blood pressure is 111/62. General: Well nourished, well developed in no acute distress. Cardiovascular: Regular rate and rhythm. No significant murmurs, rubs, or gallops. Pulmonary: Clear to auscultation bilaterally. Abdomen: Soft, nontender, nondistended. Positive bowel sounds. Extremities: Moves all extremities well. No significant clubbing, cyanosis, or edema. Dermatologic: Evaluation reveals no evidence of rash. LABORATORY DATA: Prior to discharge: None. HOSPITAL COURSE: Patient was admitted as per history and physical examination. Hospital course per condition is as follows. 1. Right lower lobe lung field pneumonia with associated hemoptysis-upon admission, patient was noted to have cough, congestion, and right flank pain. As described above, CT scan confirmed an underlying pneumonia. The patient was treated with Rocephin, doxycycline, and bronchodilators while hospitalized. The patient's improvement proved slow, but gradual. At time of discharge, patient continued to have cough and congestion, although this was considerably improved from admission. His flank pain will be addressed as described below. The patient will be discharged home on cefdinir and doxycycline therapy. We will provide a prescription of ProAir HFA to be used as needed. 2. Right flank and thoracic spine pain-This likely is pleuritic in etiology. Initially, this was intense. Throughout hospitalization, this slowly improved. At time of discharge, we will transition patient to a limited amount of [place] to be used as needed. We will continue Tylenol as needed as well. 3. Hematuria-Patient was diagnosed upon admission. We will plan to repeat a urinalysis as an outpatient. If this persists, we will plan urologic consultation. 4. Dysphagia-upon admission, the patient complained of mild dysphagia. While hospitalized, this resolved with a proton pump inhibitor. We will follow this as well. 5. Urinary frequency-The patient has achieved improvement while hospitalized. We will continue his home regimen. 6. Profound weakness-With treatment of his underlying pneumonia, his energy level slowly improved. We will continue to follow this as an outpatient as well. 7. Hyperlipidemia-patient was continued on simvastatin therapy while hospitalized. 8. Hypertension-the patient's amlodipine was held while hospitalized. Blood pressure remained acceptable. For now, we will continue losartan, but hold amlodipine therapy. We will consider resuming this as an outpatient. DISCHARGE CONDITION: Good. DISPOSITION: Discharged to home. MEDICATIONS: 1. Acetaminophen 650 mg every 4 hours as needed. 2. Xanax 1 mg at bedtime. 3. Aspirin 325 mg daily. 4. Atenolol 25 mg twice daily. 5. Mucinex DM twice daily. 6. Losartan 100 mg daily. 7. Pantoprazole 40 mg daily as needed. 8. Simvastatin 40 mg at bedtime. 9. ProAir HFA 1 to 2 puffs every 4 to 6 hours as needed. 10. Cefdinir 300 mg twice daily for 5 days. 11. Doxycycline 100 mg twice daily for 5 days. 12. [place] 7.5/325 #10 one tablet every 6 hours as needed. FOLLOWUP: The patient is to follow up with me in approximately 1 week. cc: Abdiel Davis MD
== END 2018-07-14 12:49 | disposition home or self-care (01) | DRG 194 ==
LOC: DIRADM 13:40 → 4N 14:50
PROVIDERS: ADMIT Internal Medicine; ATTEND Internal Medicine
CPT/HCPCS: 71020; 71046; 71260; 80053; 81001; 85025; 87040; 87070; 87088; 87205; 87275; 87276; 87804; 94640; 94761; 94799; A9270; J0696; J1650; J2270; J7030; J7050; Q9967

== ENCOUNTER 2018-09-27 04:23 | Inpatient (IN) ==
[2018-09-13 09:02] LABS: URINE SOURCE CLEAN CATCH
[2018-09-13 09:50] LABS: BILIRUBIN URINE NEGATIVE (NEGATIVE); BLOOD URINE TRACE (NEGATIVE); COLOR YELLOW; GLUCOSE URINE NEGATIVE (NEGATIVE); KETONE URINE NEGATIVE (NEGATIVE); LEUKOCYTES URINE NEGATIVE (NEGATIVE); NITRITE URINE NEGATIVE (NEGATIVE); PH URINE 5.5; PROTEIN URINE 30 mg/dL (NEGATIVE); SP GRAVITY URINE 1.031; TURBIDITY URINE CLEAR (CLEAR); UROBILINOGEN URINE NORMAL (NORMAL)
[2018-09-13 09:52] LABS: UR EPITHELIAL CELLS <10 /HPF (<10); URINE BACTERIA NEGATIVE /HPF; URINE RBC <10 /HPF (<10); URINE WBC <10 /HPF (<10)
[2018-09-13 09:53] LABS: BASO# 0.07 X1000 (0.0-0.2); BASO% 0.8 % (0.0-0.8); EOS# 0.29 X1000 (0.0-0.7); EOS% 3.3 % (0.0-10.0); HEMATOCRIT 47.3 % (42.0-52.0); HEMOGLOBIN 15.2 g/dL (14.0-18.0); IMM GRAN# 0.03 X1000 (0.0-0.04); IMM GRAN% 0.3 % (0.0-0.5); LYMPH# 1.75 X1000 (1.2-3.4); LYMPH% 20.2 % (20.5-51.1); MCH 29.6 PG (27-31); MCHC 32.1 g/dL (33-37); MCV 92.2 FL (81-99); MONO# 0.71 X1000 (0.11-0.59); MONO% 8.2 % (1.7-9.3); MPV 11.1 FL (7.4-10.4); NEUT# 5.83 X1000 (1.4-6.5); NEUT% 67.2 % (42.2-75.2); PLT 178 X1000 (130-400); RBC 5.13 XMIL (4.7-6.1); RDW 13.9 % (11.5-14.5); WBC 8.68 X1000 (4.8-10.8)
[2018-09-13 09:54] LABS: INR 0.88; PROTIME 12.7 Seconds (11.0-16.0)
[2018-09-13 09:55] LABS: PTT 32.8 Seconds (22.3-41.8)
[2018-09-13 09:58] LABS: HEMOGLOBIN A1C 5.2 % (4.8-6.0)
[2018-09-13 10:53] LABS: CALCIUM 9.1 mg/dL (8.8-10.2); CREATININE 1.3 mg/dL (0.7-1.2); POTASSIUM 4.9 mmol/L (3.5-5.1)
[2018-09-27] MEDS ORDERED: COLACE ONE (06:21)
[2018-09-27] MEDS ORDERED: KEFZOL 1 GM/D5W 2 GM/100 ML IVPB ONE (06:21)
[2018-09-27] MEDS ORDERED: REGLAN ONE (06:21)
[2018-09-27] MEDS ORDERED: PEPCID ONE (06:21)
[2018-09-27] MEDS ORDERED: LYRICA ONE (06:21)
[2018-09-27] MEDS ORDERED: CELEBREX ONE (06:21)
[2018-09-27] MEDS ORDERED: LR 1,000 ML ONE (06:21)
[2018-09-27] MEDS ORDERED: DURAMORPH ONE (06:47)
[2018-09-27] MEDS ORDERED: TORADOL ONE ×2 (06:47→08:30)
[2018-09-27] MEDS ORDERED: MARCAINE 0.25% PF ONE (06:47)
[2018-09-27] MEDS ORDERED: CYKLOKAPRON 1,000 MG/NS 1,000 MG/100 ML IVPB ONE ×2 (06:48→07:29)
[2018-09-27] MEDS ORDERED: VANCOMYCIN ONE (06:48)
[2018-09-27] MEDS ORDERED: EXPAREL 1.3% ONE (06:48)
[2018-09-27] MEDS ORDERED: NEOSPORIN G.U. IRRIGANT ONE (06:48)
[2018-09-27] MEDS ORDERED: SODIUM CHLORIDE 0.9% ONE (06:48)
[2018-09-27] MEDS ORDERED: DIPRIVAN 1% ONE ×3 (07:05→09:15)
[2018-09-27] MEDS ORDERED: XYLOCAINE-MPF 2% ONE ×2 (07:06→08:37)
[2018-09-27] MEDS ORDERED: ROBINUL ONE ×2 (07:06→08:37)
[2018-09-27] MEDS ORDERED: VERSED ONE (07:09)
[2018-09-27] MEDS ORDERED: FENTANYL ONE (07:15)
[2018-09-27] MEDS ORDERED: OFIRMEV 1000 MG/ISOTONIC SOLN 1,000 MG/100 ML BOTTLE ONE (08:30)
[2018-09-27] MEDS ORDERED: DECADRON ONE (08:30)
[2018-09-27] MEDS ORDERED: EPHEDRINE ONE (08:37)
[2018-09-27] MEDS ORDERED: BENADRYL ONE (10:31)
[2018-09-27] MEDS ORDERED: NS 1,000 ML ONE (10:55)
--- NOTE | 2018-09-27 11:15 | OPERATIVE NOTE ---
PROCEDURE DATE: 09/27/2018 PREOPERATIVE DIAGNOSIS: Left knee degenerative joint disease. POSTOPERATIVE DIAGNOSIS: Left knee degenerative joint disease. PROCEDURE PERFORMED: Left total knee arthroplasty using a DePuy Attune knee size 9 femoral component, a size 10 tibial base plate, a 5 mm rotating platform, posterior stabilized, and a 41 mm dome medialized patellar component. SURGEON: Lionel Lee M.D. DREDGE ENGINEER: Libertad Thomas PA-C. She was present throughout the case, and her assistance was critical for exposure, placement of the implants, decision making, and closure. Her assistance was necessary for successful completion of the case. ANESTHESIA: Spinal. COMPLICATIONS: None. BLOOD LOSS: Minimal. TOURNIQUET TIME: Approximately 2 hours. DESCRIPTION OF PROCEDURE: The patient was brought to the operative suite and placed in the supine position. After successful administration of spinal anesthesia and IV sedation, a well-padded tourniquet was placed on the left proximal thigh, and the left lower extremity was prepped and draped in the usual sterile fashion. Leg was exsanguinated. Tourniquet insufflated to 350 torr A longitudinal incision was made, beginning in the superior pole of the patella, and extended distally to the tibial tuberosity. A medial arthrotomy was made, elevating the capsule off the medial tibial plateau. The ACL, PCL, medial meniscus, and lateral meniscus were excised. Attention was directed to the patella first. The patella was everted, and 9 mm of the articular surface of the patella were removed with oscillating saw. Patella was sized to size 41. A size 41 guide was used to drill peg holes. The lateral facet was chamfered 30 to 45 degrees. Patella metal protector was then placed, and attention was directed to the femur. A drill was entered into the center of the femur. Intramedullary guide was placed, and then the distal cutting block was pinned into place. The distal cut was made with an oscillating saw. Marginal osteophytes were removed with a rongeur. Since he had a flexion contracture, we took 11 mm off the distal end of the femur. Attention was then directed to the tibia. A drill was entered into the center of the tibia. Intramedullary guide was placed. Alignment was checked with drop jing. Attention was then directed to the tibia. Using the extramedullary guide set on 3 degrees of posterior slope, the tibial cutting block was pinned into place, taking 3 mm off the lateral side of the tibia, which in this case was medially. The articular surface of the tibial plateau was removed with the oscillating saw. Marginal osteophytes were removed with the rongeur. Extension gaps were checked and found to be tight medially at 5 mm. A medial release was performed and was found to be balanced at 5 mm both medially and laterally. It was sized to 5. Therefore, a 5 size flexion gap was set, and the femoral cutting block was pinned into place. The anterior cuts, chamfer cuts, and posterior condylar cuts were made with the oscillating saw. A box cutting block was pinned into place. A box cut was made with the oscillating saw. Posterior condyle osteophytes were removed with a curved osteotome and a rongeur. The tibia was then sized to a size 10. A size 10 guide was used for the fin punch and for the rotating platform. Once this was completed, the tibial trial, femoral trial, 5 mm articular insert, and 41 mm patellar component were placed. He was found to have excellent alignment, balancing, range of motion, and patellar tracking. The PEG holes for the femur were also drilled. The trial was all removed. The knee was copiously irrigated with normal saline containing irrigant, being sure all bone debris was removed, and then drying the knee, and then the tibial component, femoral component, and patellar component were cemented into place, excess cement being removed with a [place]. Once the cement had hardened, excess cement was again removed with the osteotome. The knee was again copiously irrigated and dried, being certain all bone and cement debris were removed. The trial articular insert was removed. The knee was copiously infiltrated with Exparel, including the posterior capsule, anterior capsule, medial and lateral collateral ligaments, anterior musculature, and then the definitive articular insert was placed. A drain was placed, exiting superolaterally and placed in the lateral gutter. The tourniquet was deflated. Hemostasis was obtained with electrocautery. The knee was again copiously irrigated with normal saline containing irrigant and Vashe irrigation. The medial arthrotomy was closed with #1 Vicryl and 0 V-Loc. The skin edge was approximated with 2-0 Vicryl, and a Prineo and a sterile dressing was applied. The patient tolerated the procedure well without complication. At the end of the procedure, all counts were correct x2. The patient was transferred to the recovery room in stable condition. cc: Lionel Lee MD MTDD
[2018-09-27] MEDS ORDERED: AMBIEN PO PRN (12:15)
[2018-09-27] MEDS ORDERED: MORPHINE IV PRN ×3 (12:15)
[2018-09-27] MEDS ORDERED: ZOFRAN IV PRN (12:15)
[2018-09-27] MEDS ORDERED: MILK OF MAGNESIA PO PRN (12:15)
[2018-09-27] MEDS ORDERED: OXY IR PO PRN (12:15)
[2018-09-27] MEDS ORDERED: ZOFRAN ODT PO PRN (12:15)
[2018-09-27] MEDS: ULTRAM PO SCH ×2 (16:03→21:30)
[2018-09-27] MEDS: KEFZOL 2 GM/D5W 2 GM/50 ML IVPB IV SCH (16:03)
[2018-09-27] MEDS: NS 1,000 ML IV SCH (16:04)
[2018-09-27] MEDS: TYLENOL PO SCH ×2 (16:04→21:31)
[2018-09-27] MEDS: OXY IR PO PRN ×2 (17:48→23:19)
[2018-09-27] MEDS ORDERED: XANAX PO SCH (21:00)
[2018-09-27] MEDS ORDERED: ZOCOR PO SCH (21:00)
[2018-09-27] MEDS: PERIDEX MT SCH (21:29)
[2018-09-27] MEDS: LYRICA PO SCH (21:30)
[2018-09-27] MEDS: COLACE PO SCH (21:30)
[2018-09-27] MEDS: CELEBREX PO SCH (21:30)
[2018-09-27] MEDS: TENORMIN PO SCH (21:31)
[2018-09-28] MEDS: KEFZOL 2 GM/D5W 2 GM/50 ML IVPB IV SCH (00:27)
[2018-09-28] MEDS: OXY IR PO PRN ×2 (02:20→06:15)
[2018-09-28] MEDS: ULTRAM PO SCH ×2 (04:22→10:33)
[2018-09-28] MEDS: TYLENOL PO SCH ×2 (04:22→10:34)
[2018-09-28 06:35] LABS: CALCIUM 8.6 mg/dL (8.8-10.2); CREATININE 1.2 mg/dL (0.7-1.2)
[2018-09-28 06:36] LABS: HEMATOCRIT 38.7 % (42.0-52.0)
[2018-09-28] MEDS: NS 1,000 ML IV SCH (06:50)
[2018-09-28] MEDS ORDERED: PNEUMOVAX 23 IM ONE (08:45)
[2018-09-28] MEDS ORDERED: ASPIRIN PO SCH ×2 (09:00)
[2018-09-28] MEDS ORDERED: DECADRON IV ONE (09:00)
[2018-09-28] MEDS ORDERED: COZAAR PO SCH (09:00)
[2018-09-28] MEDS ORDERED: PEPCID PO SCH (09:00)
--- NOTE | 2018-09-28 09:01 | DISCHARGE SUMMARY ---
ADMISSION DATE: 09/27/2018 DISCHARGE DATE: 09/28/2018 DISCHARGE DIAGNOSIS:: Left knee degenerative joint disease status post left total knee arthroplasty. DISCHARGE MEDICATIONS: See discharge med list. DISPOSITION: The patient discharged home with instructions for wound care. Instructed to return for any signs or symptoms of infection or deep venous thrombosis. Instructed to return see Dr. Lee in 2 weeks. HOSPITAL COURSE: On the day of admission, patient underwent a left total knee arthroplasty. His postoperative course was unremarkable. At discharge he is afebrile, tolerating a regular diet, ambulating well with physical therapy. His wound is clean, dry, intact. No sign of infection. He is discharged home in stable condition with instructions to follow up as described above. cc: Lionel Lee MD
[2018-09-28] MEDS ORDERED: NORCO-10 PO PRN (10:20)
[2018-09-28] MEDS: COLACE PO SCH (10:29)
[2018-09-28] MEDS: PERIDEX MT SCH (10:29)
[2018-09-28] MEDS: TENORMIN PO SCH (10:30)
[2018-09-28] MEDS: LYRICA PO SCH (10:31)
[2018-09-28] MEDS: CELEBREX PO SCH (10:33)
[2018-09-28] MEDS ORDERED: TYLENOL PO PRN (10:34)
[2018-09-28 12:10] VITALS: BP 126/63
== END 2018-09-28 13:22 | disposition home or self-care (01) | DRG 470 ==
LOC: SURHOLD 04:23 → 4N 11:57
PROVIDERS: ADMIT Orthopaedic Surgery; ATTEND Orthopaedic Surgery
CPT/HCPCS: 80048; 81001; 82040; 83036; 85014; 85018; 85025; 85610; 85730; 86850; 86900; 86901; 88305; 88311; 90732; 93005; 94761; 94799; 97110; 97116; 97162; 97530; A9270; C9290; J0131; J0690; J1100; J1200; J1885; J2250; J2274; J2275; J3010; J3370; J7030; J7120; Q9974; S0020